=== PATIENT | female | born 1960 | race Caucasian/White ===

== ENCOUNTER → 2020-11-28 | Outpatient (CLI) | payer OTHER ==
[~2020-11-28] MED LIST: ARTHRITIS PAIN650 M1 PO; BENEFIBER1 EAC1 PO; ELIQUIS 2.5 MG2.5 MG PO; FAMOTIDINE40 MG PO; FLAGYL500 MG PO; IBUPROFEN600 MG PO; LEVOFLOXACIN750 MG PO; MONTELUKAST SOD10 MG PO; MYRBETRIQ25 MG PO; ONDANSETRON ODT4 MG SL; OXYCONTIN20 MG PO; PHILLIPS' COLO1 EACH PO; PREVACID30 MG PO; SYNTHROID88 MCG PO
== END ==
LOC: CT 13:30
DX: K57.30 Diverticulosis of large intestine without perforation or abscess without bleeding (principal); K44.9 Diaphragmatic hernia without obstruction or gangrene
CPT/HCPCS: 82565; Q9967

== ENCOUNTER 2021-01-06 11:35 | Emergency (ER) | payer OTHER ==
[~2021-01-06 11:35] MED LIST changes: -FLAGYL500 MG PO; -LEVOFLOXACIN750 MG PO; -ONDANSETRON ODT4 MG SL
[2021-01-06 12:05] LABS: HEMOGLOBIN 14.3 gm/dl (12.3-15.3); RED BLOOD COUNT 4.62 M/UL (4.00-5.10); WHITE BLOOD COUNT 7.4 K/UL (4.5-11.0)
[2021-01-06 12:29] LABS: BUN/CREATININE RATIO 12 (0-10)
[2021-01-06] MEDS ORDERED: FLAGYL500 MG PO (16:51)
[2021-01-06] MEDS ORDERED: ONDANSETRON ODT4 MG SL (16:51)
[2021-01-06] MEDS ORDERED: LEVOFLOXACIN750 MG PO (16:51)
== END 2021-01-06 18:44 | disposition home or self-care (01) ==
LOC: ER1 11:35
PROVIDERS: Physician Assistant
DX: K57.32 Diverticulitis of large intestine without perforation or abscess without bleeding (principal); E11.9 Type 2 diabetes mellitus without complications; Z90.710 Acquired absence of both cervix and uterus; Z88.8 Allergy status to other drugs, medicaments and biological substances
CPT/HCPCS: 36415; 80053; 81001; 83605; 83690; 85025; 86140; 96365; 96375; 99284; J1956; J2405; J7030; Q9967

== ENCOUNTER → 2021-09-04 | Outpatient (CLI) | payer OTHER ==
[~2021-09-04] MED LIST changes: +FLAGYL500 MG PO; +LEVOFLOXACIN750 MG PO; +ONDANSETRON ODT4 MG SL
== END ==
LOC: KOH-I 15:22
DX: J32.9 Chronic sinusitis, unspecified (principal); J32.0 Chronic maxillary sinusitis
CPT/HCPCS: 70486

== ENCOUNTER → 2022-01-30 | Outpatient (CLI) | payer OTHER | LOC: KOH-I 11:18 | DX: M25.551 Pain in right hip (principal); M16.11 Unilateral primary osteoarthritis, right hip | CPT/HCPCS: 73502 ==